=== PATIENT | female | born 1995 | race African-American/Black ===

== ENCOUNTER 2021-11-22 12:56 | Emergency (ER) | payer OTHER, SELFPAY ==
[2021-11-22 13:06] VITALS: BP 114/62; PULSE 89; RESP 18; TEMP 37; O2SAT 100; BMI 37.0
--- NOTE | 2021-11-22 14:12 | DI.CT.S_ITS ---
PROCEDURE: CT LUMBAR SPINE WO CON INDICATIONS: Back pain TECHNIQUE: Noncontrast 3 mm thick sections acquired from the T12 level to the sacrum. Sagittal and coronal reformats were constructed. For radiation dose reduction, the following was used: automated exposure control. COMPARISON: None. FINDINGS: Image quality: Excellent. Bones: There is normal bony alignment. No acute vertebral body compression fractures. No suspicious lytic or blastic bony lesions. No pars defects. At the disc levels, disc height is maintained. No disc bulge, central or foraminal stenosis. Soft tissues: No retroperitoneal masses or hematomas. Visualized aorta is normal in caliber. IMPRESSION: Normal CT of the lumbar spine Approved by: Yefri Murry M.D. on 11/22/2021 at 14:29
[2021-11-22] MEDS: CYCLOBENZAPRINE 10 MG TABLET PO (14:21)
[2021-11-22] MEDS: KETOROLAC 30 MG/ML VIAL IM (14:22)
--- NOTE | 2021-11-22 15:19 | ED_ITS ---
HPI - Back Pain/Injury <Cheyenne Basilio PA-C - Last Filed: 11/22/21 22:09> General Chief Complaint: Back Pain/Injury Stated Complaint: pain in back,tingling, pain going down into feet Time Seen by Provider: 11/22/21 13:08 Source: patient History of Present Illness HPI Narrative: 26-year-old female with past medical history herniated disc diagnosed in 2018 presents to the ED with 2 days of lower back pain. Patient states that she was diagnosed with a herniated disc in 2018, since then her back has been doing well with no interventions. Patient states that her current episode of back pain started yesterday as a mild discomfort in the lower back, exacerbated this morning at work. Patient's work involves heavy lifting, pushing/pulling. Patient's pain worsened when she was doing some heavy lifting this morning. Patient endorses midline lower back pain, radiating down both legs all the way to her feet. Patient denies numbness, weakness. Patient endorses some tingling in her right hip and bilateral legs. Patient denies urinary hesitancy, urinary incontinence, bowel incontinence, saddle paresthesias, IV drug use. Patient denies neck pain, neck stiffness, fever, chills. Patient endorses taking Tylenol and ibuprofen yesterday with moderate relief. Related Data Previous Rx's Medication Instructions Recorded cyclobenzaprine 10 mg tablet 10 mg PO TID PRN muscle spasm #21 11/22/21 tabs Allergies Allergy/AdvReac Type Severity Reaction Status Date / Time shellfish derived Allergy Unknown Verified 11/22/21 13:53 Iodinated Contrast Media Allergy Verified 11/22/21 13:53 Review of Systems <Cheyenne Basilio PA-C - Last Filed: 11/22/21 22:09> Review of Systems ROS Unobtainable: All systems reviewed & are unremarkable except as noted in HPI and below Constitutional Constitutional: Denies chills, Denies fatigue, Denies fever(s), Denies frequent falls, Denies lethargy and Denies weakness Eyes Eyes: Denies change in vision, Denies eye discharge, Denies irritation and Denies loss of vision ENT Ears, Nose, Mouth, and Throat: Denies change in voice, Denies dizziness, Denies neck pain, Denies sore throat and Denies throat swelling Cardiovascular Cardiovascular: Denies chest pain, Denies irregular heart rhythm, Denies lightheadedness, Denies palpitations, Denies dyspnea, Denies dyspnea on exertion and Denies orthopnea Respiratory Respiratory: Denies cough, Denies dyspnea, Denies dyspnea on exertion and Denies wheezing Gastrointestinal Gastrointestinal: Denies abdominal pain, Denies change in bowel habits, Denies d iarrhea, Denies nausea and Denies vomiting Genitourinary Genitourinary: Denies hematuria, Denies flank pain, Denies urinary incontinence and Denies urinary urgency Musculoskeletal Musculoskeletal: Reports back pain, Denies muscle weakness, Denies neck pain, Denies numbness, Reports radiating pain into limb (Bilateral) and Reports tingling Integumentary/Breasts Skin/Breast: Denies pruritus, Denies erythema, Denies rash and Denies wounds Neurologic Neurologic: Denies behavioral changes, Denies confusion, Denies dizziness, Denies frequent falls, Denies loss of vision, Denies numbness, Reports tingling and Denies weakness Psychiatric Psychiatric: Denies anxiety, Denies behavioral changes, Denies confusion, Denies depression, Denies homicidal ideation and Denies suicidal ideation Endocrine Endocrine: Denies fatigue, Denies flushing and Denies palpitations Hematologic/Lymphatic Hematologic/Lymphatic: Denies easy bruising Allergic/Immunologic Allergic/Immunologic: Denies urticaria, Denies throat swelling and Denies wheezing Patient History <Cheyenne Bsailio PA-C - Last Filed: 11/22/21 22:09> Social History Smoking Status: Never smoker Smoking Status: Never smoker alcohol intake frequency: 0-2 drinks per day Substance Use Type: does not use Exam <Cheyenne Basilio PA-C - Last Filed: 11/22/21 22:09> Initial Vital Signs Initial Vital Signs: Vital Signs Temperature 98.6 F 11/22/21 13:06 Pulse Rate 89 11/22/21 13:06 Respiratory Rate 18 11/22/21 13:06 Blood Pressure 114/62 11/22/21 13:06 Pulse Oximetry 100 11/22/21 13:06 Oxygen Delivery Method 11/22/21 13:06 Const General: cooperative HENMT Head: normocephalic and atraumatic Ears: external ears normal and TM's normal bilaterally Nose: external nose normal and No nasal discharge Face and sinus: sinuses nontender, face symmetric, no sinus tenderness and No dry mucous membranes Mouth: oral mucosae normal and moist mucous membranes Teeth and gingiva: dentition normal Throat: tonsils normal and uvula midline Eyes General: Yes appearance normal, both eyes and all related structures Eyelids: eyelids normal Conjunctivae: conjunctivae normal Sclera: sclerae normal Pupils: PERRL EOM: EOM intact bilaterally Neck Neck: normal visual inspection, trachea midline, No lymphadenopathy, No midline deformity and No JVD Lymphatic: No lymphedema Chest Chest: normal inspection of the chest Resp Effort & Inspection: normal respiratory effort, able to speak in complete sentences, no respiratory distress and no use of accessory muscles Auscultation: clear to auscultation bilaterally, no rales, no rhonchi and no wheezes Cardio Rate: regular rate Rhythm: regular rhythm Heart Sounds: no click, no gallops, no murmurs and no rubs Pulses: normal peripheral pulses GI Inspection: non-distended Palpation: soft, no hepatosplenomegaly, No guarding, No pulsatile mass and No tender Auscultation: normal bowel sounds Back/Spine/Pelvis Back: normal to inspection, back tenderness (Midline tenderness to palpation of lower back) and No CVA tenderness Cervical Spine: cervical ROM normal and No pain with cervical ROM Thoracic/Lumbar Spine: thoracic and lumbar spine normal to inspection and No straight leg raise positive Skin General: no rashes or lesions noted, No jaundice and No petechiae Other: Full range of motion. Neurovascularly intact. Neuro General: patient alert, patient oriented x3, gait normal and no focal motor deficits Speech: speech normal Other: Gait normal. Extrem General: full ROM, no clubbing, cyanosis or edema, no pedal edema and no calf tenderness Psych Appearance: well kempt Mental Status: mental status grossly normal Attitude: cooperative Thought Content: normal and suicidality Judgment: judgment good <Frandy Jones MD - Last Filed: 11/25/21 12:26> Initial Vital Signs Initial Vital Signs: Vital Signs Temperature 98.6 F 11/22/21 13:06 Pulse Rate 89 11/22/21 13:06 Respiratory Rate 18 11/22/21 13:06 Blood Pressure 114/62 11/22/21 13:06 Pulse Oximetry 100 11/22/21 13:06 Oxygen Delivery Method 11/22/21 13:06 Course <Cheyenne Basilio PA-C - Last Filed: 11/22/21 22:09> Orders Ordered: Discontinued Medications Cyclobenzaprine HCl (Cyclobenzaprine 10 Mg Tablet) 10 mg PO NOW ONE Stop: 11/22/21 14:14 Last Admin: 11/22/21 14:21 Dose: 10 mg Documented By: SB Ketorolac Tromethamine (Ketorolac 30 Mg/Ml Vial) 30 mg IM NOW ONE Stop: 11/22/21 14:14 Last Admin: 11/22/21 14:22 Dose: 30 mg Documented By: SB Vital Signs Vital signs: Vital Signs - 8 hr 11/22/21 15:51 Pulse Rate 88 Respiratory Rate 18 Blood Pressure 138/84 Pulse Oximetry 100 Oxygen Delivery Method Room Air <Frandy Jones MD - Last Filed: 11/25/21 12:26> Orders Ordered: Discontinued Medications Cyclobenzaprine HCl (Cyclobenzaprine 10 Mg Tablet) 10 mg PO NOW ONE Stop: 11/22/21 14:14 Last Admin: 11/22/21 14:21 Dose: 10 mg Documented By: SB Ketorolac Tromethamine (Ketorolac 30 Mg/Ml Vial) 30 mg IM NOW ONE Stop: 11/22/21 14:14 Last Admin: 11/22/21 14:22 Dose: 30 mg Documented By: SB Vital Signs Vital signs: Vital Signs - 8 hr 11/22/21 15:51 Pulse Rate 88 Respiratory Rate 18 Blood Pressure 138/84 Pulse Oximetry 100 Oxygen Delivery Method Room Air MDM - Back Pain/Injury <Cheyenne Basilio PA-C - Last Filed: 11/22/21 22:09> Imaging Data CT lumbar spine: Radiologist's Impression: PROCEDURE:? CT LUMBAR SPINE WO CON ? INDICATIONS:? Back pain ? TECHNIQUE:? Noncontrast 3 mm thick sections acquired from the T12 level to the sacrum.? Sagittal and coronal reformats were constructed.? For radiation dose reduction, the following was used:? automated exposure control.? ? COMPARISON:? None. ? FINDINGS:? Image quality:? Excellent.? ? Bones:? There is normal bony alignment.? No acute vertebral body compression fra ctures.? No suspicious lytic or blastic bony lesions.? No pars defects.? ? At the disc levels, disc height is maintained.? No disc bulge, central or foraminal stenosis. ? Soft tissues:? No retroperitoneal masses or hematomas.? Visualized aorta is normal in caliber.? ? ? IMPRESSION:? ? Normal CT of the lumbar spine ? ? ? MDM Narrative Medical decision making narrative: 26-year-old female with past medical history herniated disc diagnosed in 2018 presents to the ED with 2 days of lower back pain. Concern for fracture/disl ocation versus disc herniation versus low back sprain/strain. Will obtain lumbar CT due to midline tenderness in the lower back. Will treat pain with Toradol, Flexeril. Will reassess. CT lumbar spine without acute findings. Patient's symptoms improved with Toradol and Flexeril. Discharge patient home with ED return precautions, prescription for Flexeril. Patient verbalized understanding. Discharge Plan Departure Patient Disposition: Home Clinical Impression: Strain of lumbar region Instructions: DI for Back Pain With Sciatica Activity Restrictions/Additional Instructions: You were evaluated in the ED today for lower back pain. Your CT of the lumbar spine did not show any evidence of fracture/dislocations or bulging discs. Your symptoms improved with ketorolac and Flexeril. You have been given a prescription for Flexeril, which he may take for the next few days. You may al so take ibuprofen 800 mg 3 times a day with food to improve pain and inflammation. Return to the ED if you experience numbness, tingling, weakness, bowel/bladder incontinence, difficulty urinating, fever, chills. Prescriptions: New cyclobenzaprine 10 mg tablet 10 mg PO TID PRN (Reason: muscle spasm) Qty: 21 0RF Stand Alone Forms: Work Release Note Visit Report Forms: Patient Portal/API <Frandy Jones MD - Last Filed: 11/25/21 12:26> Cosign ED Attending Robinature Attestation: I was immediately available for consultation of this patient was seen and evaluated by the APC in the department.
[2021-11-22 15:51] VITALS: BP 138/84; PULSE 88; RESP 18; O2SAT 100
== END 2021-11-22 15:55 | disposition home or self-care (01) ==
PROVIDERS: Emergency Provider Student in an Organized Health Care Education/Training Program
DX: S39.012A Strain of muscle, fascia and tendon of lower back, initial encounter (principal); M51.26 Other intervertebral disc displacement, lumbar region; X50.0XXA Overexertion from strenuous movement or load, initial encounter
CPT/HCPCS: 72131; 96372; 99283; 99284; J1885